=== PATIENT | female | born 1990 | race American Indian/Alaskan Native ===

== ENCOUNTER 2017-12-08 09:51 | Emergency (ER) | payer BC ==
[2017-12-08 09:56] VITALS: BP 110/63; PULSE 82; TEMP 98.3; O2SAT 100
[2017-12-08 10:15] VITALS: RESP 16
--- NOTE | 2017-12-08 10:35 | ED PDOC ---
HPI: Female Pain Chief Complaint (Provider): Vaginal bleeding History Per: Patient History/Exam Limitations: no limitations Onset/Duration Of Symptoms: Hrs Current Symptoms Are (Timing): Still Present Quality Of Discomfort: Cramping Associated Symptoms: Nausea. denies: Fever, Chills, Vomiting, Diarrhea, Back Pain, Chest Pain, Constipation, Urinary Symptoms Additional Complaint(s): 27 y/o F with no significant PMHx presents at 5 weeks of GA complaining of vaginal bleeding since this morning, associated with lower abdominal cramp like pain since last night. Patient states she has had nausea without any vomit episode, and she is able to tolerate fluids and solids. As per patient she had an OB ultrasound yesterday by her [facility]UISE CONSULTANT/OB doctor, and was told she was 5 wks . Denies fevers, chills, urinary symptoms or other complains. Taking vitamins. CRUISE CONSULTANT/OB: Dr. Cho Allergies: Shrimp/hives, Peanut/hives LMP: unsure <Sonia Nice - Last Filed: 12/09/17 08:19> <Dusty Villa - Last Filed: 12/10/17 06:48> Time Seen by Provider: 12/08/17 10:19 Chief Complaint (Nursing): Female Genitourinary Supervising Attending Note - Supervising Attending Note The Documented history was done by the: Physician Shaker Washer The documented physical exam was done by the: Physician Shaker Washer The documented procedures were done by the: Physician Shaker Washer - Attestation: I have personally seen and examined this patient.: Yes I have fully participated in the care of the patient.: Yes I have reviewed all pertinent clinical information, including history, physical exam and plan: Yes <Dusty Villa Y - Last Filed: 12/10/17 06:48> Past Medical History Vital Signs: Last Vital Signs Temp 98.3 F 12/08/17 10:13 Pulse 82 12/08/17 10:13 Resp 16 12/08/17 10:13 BP 110/63 12/08/17 10:13 Pulse Ox 100 12/08/17 10:13 - Medical History PMH: No Chronic Diseases - Surgical History Other surgeries: Skin graft - Family History Family History: States: Unknown Family Hx - Social History Current smoker - smoking cessation education provided: No Ex-Smoker (has not smoked in the last 12 months): No Alcohol: None Drugs: Denies - Immunization History Hx Tetanus Toxoid Vaccination: Yes Hx Influenza Vaccination: Yes Hx Pneumococcal Vaccination: No <Sonia Nice - Last Filed: 12/09/17 08:19> Vital Signs: Last Vital Signs Temp 98.3 F 12/08/17 10:13 Pulse 82 12/08/17 10:13 Resp 16 12/08/17 10:13 BP 110/63 12/08/17 10:13 Pulse Ox 100 12/09/17 08:19 <Dusty Villa Y - Last Filed: 12/10/17 06:48> - Home Medications Home Medications: Ambulatory Orders Medication Instructions Recorded No Known Home Med 12/08/17 - Allergies Allergies/Adverse Reactions: Allergies Allergy/AdvReac Type Severity Reaction Status Date / Time peanut Allergy HIVES Verified 12/08/17 10:13 shrimp Allergy HIVES Verified 12/08/17 10:13 DUST Allergy PUFFY EYES Uncoded 07/07/17 02:05 SEASONAL Allergy PUFFY EYES Uncoded 07/07/17 02:05 Review of Systems ROS Statement: Except As Marked, All Systems Reviewed And Found Negative (as per HPI) <Sonia Nice - Last Filed: 12/09/17 08:19> Physical Exam - Reviewed Nursing Documentation Reviewed: Yes Vital Signs Reviewed: Yes - Physical Exam Appears: Positive for: Non-toxic, No Acute Distress Head Exam: Positive for: ATRAUMATIC, NORMOCEPHALIC Skin: Positive for: Normal Color, Warm, Dry Eye Exam: Positive for: Normal appearance Cardiovascular/Chest: Positive for: Regular Rate, Rhythm. Negative for: Chest Non Tender, Edema, Murmur, Bradycardia, Tachycardia Respiratory: Positive for: Normal Breath Sounds. Negative for: Decreased Breath Sounds, Accessory Muscle Use, Crackles, Rales, Rhonchi, Stridor, Wheezing , Respiratory Distress Gastrointestinal/Abdominal: Positive for: Bowel Sounds (present and normal), Soft, Tenderness (mild to palpation of suprapubic area). Negative for: Mass, Distended, Guarding, Rebound Back: Positive for: Normal Inspection. Negative for: L CVA Tenderness, R CVA Tenderness Neurologic/Psych: Positive for: Alert, Oriented <Sonia Nice - Last Filed: 12/09/17 08:19> - Laboratory Results Result Diagrams: 12/08/17 10:45 12/08/17 10:45 - ECG O2 Sat by Pulse Oximetry: 100 <Sonia Nice - Last Filed: 12/09/17 08:19> - Laboratory Results Result Diagrams: 12/08/17 10:45 12/08/17 10:45 <Dusty Villa - Last Filed: 12/10/17 06:48> Medical Decision Making Medical Decision Making: Vaginal bleeding in -type and screen -check beta HCG -check CBC, CMP -UA -OB ultrasound case discussed with Dr. Villa Re-evaluation Re-evaluation -CBC and CMP WNL -Beta HCG elevated OB US reported as IMPRESSION: Intrauterine gestational sac with average ultrasound age of 6 weeks, 0 days. Yolk sac present, measuring 4 mm. pole not yet identified. Findings may represent early normal/ abnormal . Small subchorionic hemorrhage. Close clinical follow-up with serial pelvic sonography and serum beta HCG levels is recommended. Cervix long and closed. -stable for discharge home with strongly recommended f/u with [facility]/OB specialist to repeat Beta HCG and OB US case discussed with Dr. Villa <Sonia Nice - Last Filed: 12/09/17 08:19> Disposition - Patient ED Disposition Is Patient to be Admitted: No Discussed With : Dusty Villa - Disposition Disposition: Routine/Home Disposition Time: 11:00 <Sonia Nice - Last Filed: 12/09/17 08:19> <Dusty Villa - Last Filed: 12/10/17 06:48> - Clinical Impression Clinical Impression: Threatened , Subchorionic hemorrhage - Disposition Condition: IMPROVED Additional Instructions: follow up with your primary bulb assembler in 1-2 days pelvic rest to prevent further bleeding return to the ED with any worsening or concerning symptoms Instructions: Threatened Miscarriage (DC) Forms: [employer] ([place])
[2017-12-08 10:57] LABS: BASO % 0.5 % (0.0-2.0); EOS # 0.1 K/uL (0.0-0.7); EOS % 1.4 % (0.0-4.0); LYMPH # 1.5 K/uL (1.0-4.3); LYMPH % 27.2 % (20.0-40.0); MEAN CELL VOLUME 86.2 fl (81.0-99.0); MEAN CORPUSCULAR HEMOGLOBIN 28.9 pg (27.0-31.0); MEAN CORPUSCULAR HGB CONC 33.5 g/dL (33.0-37.0); MEAN PLATELET VOLUME 9.3 fl (7.2-11.7); MONO # 0.7 K/uL (0.0-0.8); MONO % 12.1 % (0.0-10.0); NEUT # 3.3 K/uL (1.8-7.0); NEUT % 58.8 % (50.0-75.0); NRBC % 0.2 % (0.0-0.0); RBC 4.52 Mil/uL (3.80-5.20); RED CELL DISTRIBUTION WIDTH 12.7 % (11.5-14.5); WHITE BLOOD COUNT 5.6 K/uL (4.8-10.8)
[2017-12-08 11:12] LABS: SQUAMOUS EPITHIAL 3 /hpf (0-5); URINE BACTERIA OCC (<OCC); URINE BILIRUBIN NEGATIVE (NEGATIVE); URINE BLOOD MODERATE (NEGATIVE); URINE CLARITY CLOUDY (Clear); URINE COLOR YELLOW (YELLOW); URINE GLUCOSE (UA) NEG (Normal); URINE LEUKOCYTE ESTERASE NEG Leu/uL (Negative); URINE PROTEIN 30 mg/dL (NEGATIVE); URINE UROBILINOGEN 0.2-1.0 mg/dL (0.2-1.0)
[2017-12-08 11:23] LABS: ALB/GLOB RATIO 1.3 (1.0-2.1); ALBUMIN 3.9 g/dL (3.5-5.0); ALT/SGPT 48 U/L (9-52); AST/SGOT 24 U/L (14-36); BLOOD UREA NITROGEN 8 mg/dl (7-17); GFR AFRICAN-AMERICAN > 60; GFR NON-AFRICAN AMERICAN > 60
--- NOTE | 2017-12-08 12:41 | US ---
PROCEDURE: OB Pelvic Ultrasound HISTORY: vag bleeding LMP: 10/23/2017 COMPARISON: None available. FINDINGS: UTERUS: Gestational sac: Single intrauterine gestation. Mean sac diameter measures 1.7 cm compatible with estimated gestational age of 6 weeks, 0 days. Yolk sac: Measures 0.4 cm pole: Not yet identified Isis-gestational hemorrhage: Small subchronic hemorrhage measuring 0.7 x 0.5 x 0.5 cm. Date of delivery (Ultrasound estimated) : 08/01/2018 Uterus measures 10.2 x 6.0 x 6.2 cm. Anteverted retroflexed. Normal in size and appearance. CERVIX: Long and closed. No cervical abnormality seen. RIGHT OVARY: Measures 2.2 x 2.7 x 1.2 cm. No mass lesion. Normal flow. LEFT OVARY: Measures 3.8 x 3.7 x 2.3 cm. Corpus luteum measuring 2.0 x 2.2 x 1.6 cm. Normal flow. FREE FLUID: Trace. OTHER FINDINGS: None. IMPRESSION: Intrauterine gestational sac with average ultrasound age of 6 weeks, 0 days. Yolk sac present, measuring 4 mm. pole not yet identified. Findings may represent early normal/ abnormal . Small subchorionic hemorrhage. Close clinical follow-up with serial pelvic sonography and serum beta HCG levels is recommended. Cervix long and closed.
== END 2017-12-08 13:20 | disposition home or self-care (01) ==
LOC: H.ER 09:51
DX: O20.0 Threatened abortion (principal)